=== PATIENT | female | born 1955 | race Caucasian/White ===

== ENCOUNTER → 2017-02-25 | Outpatient (CLI) | payer OTHER ==
[~2017-02-25] MED LIST: ADULT LOW DOSE81 MG PO; BASAGLAR SQ; METFORMIN HCL1000 M1 PO; SYNTHROID25 MCG PO; ZESTRIL5 MG PO
[2017-02-25 14:24] LABS: HEMOGLOBIN 15.3 gm/dl (12.3-15.3); RED BLOOD COUNT 5.18 M/UL (4.00-5.10); WHITE BLOOD COUNT 8.2 K/UL (4.5-11.0)
[2017-02-25 14:58] LABS: BUN/CREATININE RATIO 30 (0-10)
== END ==
LOC: LAB 13:06
PROVIDERS: Internal Medicine Nephrology
DX: E11.9 Type 2 diabetes mellitus without complications (principal); E03.9 Hypothyroidism, unspecified
CPT/HCPCS: 36415; 80053; 80061; 82043; 82570; 84443; 85007; 85025; 85027

== ENCOUNTER → 2017-04-05 | Day surgery (SDC) | payer OTHER ==
[~2017-04-05] VITALS: Ht 170.2 cm; Wt 66.7 kg
== END | disposition home or self-care (01) ==
LOC: OR 03-24 09:00
PROVIDERS: Surgery
PROC: 0DBP8ZZ Excision of Rectum, Via Natural or Artificial Opening Endoscopic (ICD-10-PCS; principal; 2017-04-05 10:30)
DX: D12.8 Benign neoplasm of rectum (principal); K62.5 Hemorrhage of anus and rectum; K59.00 Constipation, unspecified; E11.9 Type 2 diabetes mellitus without complications; M19.90 Unspecified osteoarthritis, unspecified site; Z86.73 Personal history of transient ischemic attack (TIA), and cerebral infarction without residual deficits; Z80.0 Family history of malignant neoplasm of digestive organs; Z88.0 Allergy status to penicillin; Z82.49 Family history of ischemic heart disease and other diseases of the circulatory system; Z79.82 Long term (current) use of aspirin; Z79.84 Long term (current) use of oral hypoglycemic drugs; Z79.899 Other long term (current) drug therapy; Z90.49 Acquired absence of other specified parts of digestive tract; Z90.710 Acquired absence of both cervix and uterus
CPT/HCPCS: 82962; J1815; J2250; J3010; J7120

== ENCOUNTER 2020-12-13 14:46 | Emergency (ER) | payer MEDICARE, OTHER ==
[~2020-12-13 14:46] MED LIST changes: +AZITHROMYCIN250 MG PO; +GLUCOPHAGE1000 MG PO; +GLUCOTROL5 MG PO; +PREDNISONE 20 M20 MG PO; +PROVENTIL HFA6.7 GM INH; +ZOFRAN ODT 4 MG4 MG PO
[2020-12-13 16:42] LABS: HEMOGLOBIN 14.7 gm/dl (12.3-15.3); RED BLOOD COUNT 5.11 M/UL (4.00-5.10); WHITE BLOOD COUNT 6.1 K/UL (4.5-11.0)
[2020-12-13 17:07] LABS: BUN/CREATININE RATIO 20 (0-10)
== END 2020-12-13 18:45 | disposition home or self-care (01) ==
LOC: ER1 14:46
PROVIDERS: Preventive Medicine Occupational Medicine
DX: E11.9 Type 2 diabetes mellitus without complications (principal); Z91.14 Patient's other noncompliance with medication regimen; Z88.0 Allergy status to penicillin; Z20.822 Contact with and (suspected) exposure to COVID-19
CPT/HCPCS: 71045; 80053; 81001; 83036; 83690; 85025; 85652; 86140; 87086; 99283; U0002

== ENCOUNTER 2021-05-11 13:09 | Emergency (ER) | payer MEDICARE ==
[2021-05-11] MEDS ORDERED: CYCLOBENZAPRINE10 MG PO (15:22)
== END 2021-05-11 15:35 | disposition home or self-care (01) ==
LOC: ER1 13:09
DX: M25.552 Pain in left hip (principal); E11.9 Type 2 diabetes mellitus without complications; Z90.49 Acquired absence of other specified parts of digestive tract; Z90.710 Acquired absence of both cervix and uterus
CPT/HCPCS: 72131; 73502; 96372; 99284; J2270

== ENCOUNTER → 2021-05-12 | Outpatient (CLI) | payer OTHER ==
[~2021-05-12] MED LIST changes: +CYCLOBENZAPRINE10 MG PO
== END ==
LOC: EXRD 15:44
DX: Z01.89 Encounter for other specified special examinations (principal)
CPT/HCPCS: 93971

== ENCOUNTER 2021-07-16 13:46 | Emergency (ER) | payer OTHER | END 2021-07-16 18:17 | disposition home or self-care (01) | LOC: ER1 13:46 | DX: U07.1 COVID-19 (principal); E11.9 Type 2 diabetes mellitus without complications; Z88.0 Allergy status to penicillin | CPT/HCPCS: 71045; 99283; U0002 ==

== ENCOUNTER 2021-07-18 19:40 | Emergency (ER) | payer OTHER ==
[2021-07-18 20:36] LABS: HEMOGLOBIN 15.9 gm/dl (12.3-15.3); RED BLOOD COUNT 5.29 M/UL (4.00-5.10); WHITE BLOOD COUNT 4.3 K/UL (4.5-11.0)
[2021-07-18 20:58] LABS: BUN/CREATININE RATIO 20 (0-10)
[2021-07-18] MEDS ORDERED: PROAIR HFA8.5 GM INH (22:56)
[2021-07-18] MEDS ORDERED: ONDANSETRON ODT4 MG SL (22:56)
[2021-07-18] MEDS ORDERED: BENZONATATE200 MG PO (22:56)
== END 2021-07-18 23:15 | disposition home or self-care (01) ==
LOC: ER1 19:40
PROVIDERS: Physician Assistant
DX: Z23 Encounter for immunization (principal); U07.1 COVID-19; J12.82 Pneumonia due to coronavirus disease 2019; E11.9 Type 2 diabetes mellitus without complications; Z90.49 Acquired absence of other specified parts of digestive tract; Z90.710 Acquired absence of both cervix and uterus; Z88.0 Allergy status to penicillin
CPT/HCPCS: 71045; 80053; 82550; 82553; 83615; 83874; 84484; 85025; 86140; 93005; 99285; M0243

== ENCOUNTER 2022-06-12 16:39 | Emergency (ER) | payer MEDICARE, OTHER ==
[~2022-06-12 16:39] MED LIST changes: +BENZONATATE200 MG PO; +ONDANSETRON ODT4 MG SL; +PROAIR HFA8.5 GM INH
[2022-06-12 17:08] LABS: HEMOGLOBIN 15.7 gm/dl (12.3-15.3); RED BLOOD COUNT 5.24 M/UL (4.00-5.10); WHITE BLOOD COUNT 8.7 K/UL (4.5-11.0)
[2022-06-12 17:58] LABS: BUN/CREATININE RATIO 22 (0-10)
[2022-06-12] MEDS ORDERED: MACROBID 100 M100 MG PO (20:26)
[2022-06-12] MEDS ORDERED: MELOXICAM15 MG PO (20:26)
== END 2022-06-12 20:45 | disposition home or self-care (01) ==
LOC: ER1 16:39
DX: R07.81 Pleurodynia (principal); N39.0 Urinary tract infection, site not specified; E11.9 Type 2 diabetes mellitus without complications; Z90.710 Acquired absence of both cervix and uterus; Z90.49 Acquired absence of other specified parts of digestive tract; Z88.0 Allergy status to penicillin; Z86.16 Personal history of COVID-19
CPT/HCPCS: 71045; 80053; 81001; 82550; 82553; 83690; 84484; 85025; 85379; 93005; 99284; Q9967

== ENCOUNTER → 2022-06-19 | Outpatient (CLI) | payer MEDICARE, OTHER ==
[~2022-06-19] MED LIST changes: +MACROBID 100 M100 MG PO; +MELOXICAM15 MG PO
== END ==
LOC: KOH-I 10:00
DX: R10.12 Left upper quadrant pain (principal); K76.0 Fatty (change of) liver, not elsewhere classified; Z90.49 Acquired absence of other specified parts of digestive tract
CPT/HCPCS: 76700